=== PATIENT | female | born 1990 | race Two or more races ===

== ENCOUNTER 2021-11-12 15:05 | Inpatient (IN) | payer OTHER ==
[2021-11-12] MEDS ORDERED: DINOPROSTONE 10 MG VAGINAL SUPPOSITORY VG ONE (17:04)
[2021-11-12 17:15] VITALS: BMI 32.5
[2021-11-12 17:45] LABS: INR 0.97 (0.83-1.09); PROTHROMBIN TIME (PATIENT) 11.2 SEC (9.7-13.0)
[2021-11-12 17:46] LABS: BASO % 0.4 % (0-2.0); EOS % 0.5 % (0-4.5); HEMATOCRIT 31.8 % (32.4-45.2); HEMOGLOBIN 10.5 GM/dL (10.7-15.3); LYMPH % 16.4 % (8-40); MCH 28.5 pg (25.7-33.7); MCHC 33.2 g/dl (32.0-36.0); MEAN CELL VOLUME 85.8 fl (80-96); MEAN PLT VOLUME 9.2 fl (7.5-11.1); MONO % 4.9 % (3.8-10.2); NEUT % 77.8 % (42.8-82.8); PLATELET COUNT 247 10^3/uL (134-434); RDW 14.5 % (11.6-15.6); WHITE BLOOD COUNT 9.2 K/mm3 (4.0-10.0)
[2021-11-12 17:48] LABS: ACTIVATED PTT 30.9 SECONDS (25.2-36.5)
[2021-11-12 18:08] LABS: CALCIUM 8.7 mg/dL (8.5-10.1)
[2021-11-12 18:09] LABS: BLOOD UREA NITROGEN 10.2 mg/dL (7-18)
[2021-11-12 18:12] LABS: CREATININE 0.5 mg/dL (0.55-1.3)
[2021-11-12] MEDS: ELECTROLYTE-148 SOLN 1,000 ML IV SCH (18:15)
[2021-11-13] MEDS: ELECTROLYTE-148 SOLN 1,000 ML IV SCH (01:45)
[2021-11-13] MEDS ORDERED: OXYTOCIN 30 UNITS in 0.9% NS 30 UNIT/500 ML INFUS.BAG IVPB SCH (09:30)
[2021-11-13] MEDS ORDERED: FENTANYL/BUPIVACAINE/NS/PF - PCEA - 50 ML DISP.SYRIN EP ONE ×2 (10:32→14:55)
[2021-11-13] MEDS ORDERED: NALOXONE HCL 0.4 MG/ML VIAL IVPUSH PRN (11:31)
[2021-11-13] MEDS ORDERED: FENTANYL/BUPIVACAINE/NS/PF - PCEA - 50 ML DISP.SYRIN EP SCH ×2 (11:45→11:58)
[2021-11-13] MEDS ORDERED: OXYTOCIN 20 UNITS in 0.9% NS 20 UNIT/1,000 ML INFUS.BAG IV ONE (18:06)
[2021-11-13] MEDS ORDERED: BISACODYL 10 MG SUPP.RECT RC PRN (19:14)
[2021-11-13] MEDS ORDERED: METHYLERGONOVINE MALEATE 0.2 MG/1 ML AMP IM PRN (19:14)
[2021-11-13] MEDS ORDERED: WITCH HAZEL 50% (TUCKS) 40 PAD/JAR PAD TP PRN (19:14)
[2021-11-13] MEDS ORDERED: oxyCODONE HCL 5 MG TABLET PO PRN (19:14)
[2021-11-13] MEDS ORDERED: BENZOCAINE 28 GM HEMORRHOIDAL OINTMENT TP PRN (19:14)
[2021-11-13] MEDS ORDERED: BENZOCAINE 20% 57 GM BOTTLE TP PRN (19:14)
[2021-11-13] MEDS ORDERED: ACETAMINOPHEN 325 MG TABLET (FP) PO PRN (19:14)
[2021-11-13] MEDS ORDERED: OXYTOCIN 20 UNITS in 0.9% NS 20 UNIT/1,000 ML INFUS.BAG IV SCH (19:15)
[2021-11-13] MEDS ORDERED: BUPIVACAINE HCL/PF 0.25% (2.5MG/ML) 10 ML VIAL ONE (20:10)
[2021-11-13] MEDS: IBUPROFEN 600 MG TABLET (FP) PO PRN (21:22)
[2021-11-14] MEDS: IBUPROFEN 600 MG TABLET (FP) PO PRN (05:35)
[2021-11-14 08:15] LABS: BASO % 0.2 % (0-2.0); EOS % 0.3 % (0-4.5); HEMATOCRIT 28.4 % (32.4-45.2); HEMOGLOBIN 9.4 GM/dL (10.7-15.3); LYMPH % 13.5 % (8-40); MCH 28.5 pg (25.7-33.7); MCHC 33.2 g/dl (32.0-36.0); MEAN CELL VOLUME 85.8 fl (80-96); MEAN PLT VOLUME 9.5 fl (7.5-11.1); MONO % 5.5 % (3.8-10.2); NEUT % 80.5 % (42.8-82.8); PLATELET COUNT 201 10^3/uL (134-434); RDW 14.4 % (11.6-15.6); WHITE BLOOD COUNT 15.4 K/mm3 (4.0-10.0)
[2021-11-14] MEDS ORDERED: SENNOSIDES/DOCUSATE COMBO (SENNA PLUS) TABLET (UD) PO PRN (22:00)
[2021-11-15] MEDS: IBUPROFEN 600 MG TABLET (FP) PO PRN (08:16)
[2021-11-15 14:18] VITALS: BP 100/68; PULSE 83; TEMP 97.5
== END 2021-11-15 12:50 | disposition home or self-care (01) | DRG 560 ==
LOC: JLDR 15:05 → J3W 11-13 20:49
PROVIDERS: ADMIT Specialist; ATTEND Specialist
PROC: 3E0P7VZ Introduction of Hormone into Female Reproductive, Via Natural or Artificial Opening (ICD-10-PCS; 2021-11-12)
PROC: 10E0XZZ Delivery of Products of Conception, External Approach (ICD-10-PCS; principal; 2021-11-13)
PROC: 3E033VJ Introduction of Other Hormone into Peripheral Vein, Percutaneous Approach (ICD-10-PCS; 2021-11-13)
PROC: 10907ZC Drainage of Amniotic Fluid, Therapeutic from Products of Conception, Via Natural or Artificial Opening (ICD-10-PCS; 2021-11-13)
DX: O41.03X0 Oligohydramnios, third trimester, not applicable or unspecified (principal); Z3A.39 39 weeks gestation of pregnancy; Z37.0 Single live birth
CPT/HCPCS: 36415; 59409; 80048; 85025; 85610; 85730; 86780; 86850; 86900; 86901; C9803; U0003; U0005